=== PATIENT | male | born 1945 | race Caucasian/White ===

== ENCOUNTER 2024-02-08 02:10 | Outpatient (CLI) | payer MEDICARE, BC, SELFPAY | END 2024-02-08 02:11 | disposition home or self-care (01) | LOC: AMB 02-12 03:17 | PROVIDERS: Visit Provider Emergency Medicine | DX: S09.93XA Unspecified injury of face, initial encounter (principal); S06.5XAA Traumatic subdural hemorrhage with loss of consciousness status unknown, initial encounter | CPT/HCPCS: A0425; A0427 ==